=== PATIENT | male | born 1940 | race Two or more races ===

== ENCOUNTER 2018-03-31 06:20 | Day surgery (SDC) | payer MEDICARE ==
[2018-03-31] VITALS (10 sets, daily range): BP systolic 131–154; BP diastolic 69–82
[~2018-03-31] VITALS: Ht 157.5 cm; Wt 72.6 kg
[~2018-03-31 06:20] MED LIST: ASPIR 8181 MG ORAL; ATORVASTATIN CA40 MG ORAL; CLOPIDOGREL75 MG ORAL; METFORMIN HCL500 M4 ORAL; SULFAMETHOXAZO1 EAC1 ORAL
[2018-03-31] MEDS ORDERED: ceFAZolin sod 1 GM in NS 55 ML IVPB ONE (07:00)
--- NOTE | 2018-03-31 08:13 | Pre-Procedure Note/Attestation ---
Pre-Procedure Note/Attestation Complete Prior to Procedure Planned Procedure: not applicable Procedure Narrative: TURBT Indications for Procedure Pre-Operative Diagnosis: bladder tumor Attestation I attest that I discussed the nature of the procedure; its benefits; risks and complications; and alternatives (and the risks and benefits of such alternatives ), prior to the procedure, with the patient (or the patient's legal practice representative). I attest that, if there was a reasonable possibility of needing a blood transfusion, the patient (or the patient's legal practice representative) was given the [facility] standardized written summary, pursuant to the Manoj Maura Blood Safety Act ([place] Health and Safety Code # 1645, as amended). I attest that I re-evaluated the patient just prior to the surgery and that there has been no change in the patient's H&P, except as documented below: Mason Rowland MD Mar 31, 2018 08:13
[2018-03-31] MEDS ORDERED: LR 1000ml ONE (09:00)
[2018-03-31] MEDS ORDERED: Sterile Water For Irrig 2000ml IRRIG ONE (09:00)
[2018-03-31] MEDS ORDERED: NS Irrig 1000ml ONE (09:00)
[2018-03-31] MEDS ORDERED: Sterile Water Irrig 1000ml IRRIG ONE (09:00)
[2018-03-31] MEDS ORDERED: LR 1000ml 1,000 ML IVLG SCH (09:05)
--- NOTE | 2018-03-31 09:07 | Anethesia Preoperative Eval ---
Anesthesia Pre-op PMH/ROS General Date of Evaluation: Mar 31, 2018 Time of Evaluation: 09:44 Anesthesiologist: Yris ASA Score: ASA 3 Mallampati Score Class I : Soft palate, uvula, fauces, pillars visible Class II: Soft palate, uvula, fauces visible Class III: Soft palate, base of uvula visible Class IV: Only hard plate visible Mallampati Classification: Class II Surgeon: Janett Diagnosis: Bladder Tumor Surgical Procedure: TURBT Anesthesia History: none Family History: no anesthesia problems Allergies: Coded Allergies: No Known Allergies (Unverified , 03/30/18) Medications: see eMAR Patient NPO?: Yes Past Medical History Cardiovascular: Reports: HTN, other - HL Gastrointestinal/Genitourinary: Reports: other - Bladder Tumor Neurologic/Psychiatric: Reports: CVA Endocrine: Reports: DM Anesthesia Pre-op Phys. Exam Physician Exam Last Vital Signs Date Time Temp Pulse Resp B/P (MAP) Pulse Ox O2 Delivery O2 Flow Rate FiO2 03/31/18 06:52 97.5 54 20 132/72 96 Room Air 97.5 Constitutional: NAD Neurologic: CN 2-12 intact Cardiovascular: RRR Respiratory: CTA Gastrointestinal: S/NT/ND Airway Exam Mallampati Score: Class II MO: limited ROM: limited Teeth: missing Dentures: upper, lower Anesthesia Pre-op A/P Risk Assessment & Plan Assessment: ASA 3 Plan: GA, SED, GlideScope Go Status Change Before Surgery: No Pre-Antibiotics Dru Gram Ancef IV Given Within 1 Hr of Incision: Yes Time Given: 09:52 Demetrio Arndt MD Mar 31, 2018 09:07
[2018-03-31] MEDS ORDERED: Midazolam 2mg/2ml Inj IVP PRN (09:15)
[2018-03-31] MEDS ORDERED: Atropine Sulfate 0.4mg/ml inj IVP PRN (09:15)
[2018-03-31] MEDS ORDERED: Propofol 200mg/20ml IV ONE (09:15)
[2018-03-31] MEDS ORDERED: Hydromorphone 0.5mg/0.5ml inj IVP PRN (09:15)
[2018-03-31] MEDS ORDERED: HYDROcodone/Acetamin 7.5/325 tab ORAL PRN (09:15)
[2018-03-31] MEDS ORDERED: oxyCODONE HCL/Acetaminophen 5/325mg ORAL PRN (09:15)
[2018-03-31] MEDS ORDERED: Lidocaine 1% MPF 10mg/ml 5ml ONE (09:15)
[2018-03-31] MEDS ORDERED: Norco 5mg/325mg tab ORAL PRN ×2 (09:15→11:00)
[2018-03-31] MEDS ORDERED: Sodium Chloride 10ml vial INJ ONE (09:15)
[2018-03-31] MEDS ORDERED: Ketorolac 30mg Inj IV PRN ×2 (09:15)
[2018-03-31] MEDS ORDERED: Acetaminophen (Non formulary) 100 ML IV ONE (09:15)
[2018-03-31] MEDS ORDERED: fentaNYL 100 mcg/2 mL IV PRN (09:15)
[2018-03-31] MEDS ORDERED: DiphenhydrAMINE 50mg/ml Inj IVP PRN (09:15)
[2018-03-31] MEDS ORDERED: Meperidine 50mg/ml Inj(FOR RIGORS ONLY) IVP PRN (09:15)
[2018-03-31] MEDS ORDERED: LORazepam Inj 2mg/ml 1ml IV PRN (09:15)
[2018-03-31] MEDS ORDERED: Metoclopramide 10mg/2ml Inj IVP PRN (09:15)
[2018-03-31] MEDS ORDERED: fentaNYL 100 mcg/2 mL IV ONE (09:27)
[2018-03-31] MEDS ORDERED: Midazolam 2mg/2ml Inj ONE (09:27)
[2018-03-31] MEDS ORDERED: Iothalamate Meglumine 60% 30ML INJ ONE (09:45)
[2018-03-31] MEDS ORDERED: ePHEDrine 50mg/ml Inj ONE (10:01)
[2018-03-31] MEDS ORDERED: Glycopyrrolate 0.2mg/ml 1ml Vial ONE ×2 (10:08→10:49)
[2018-03-31] MEDS ORDERED: Ketorolac 30mg Inj ONE (10:49)
--- NOTE | 2018-03-31 10:52 | Brief Operative Note ---
Immediate Post Operative Note Operative Note Pre-op Diagnosis: bladder tumor Procedure: TURBT RPG Post-op Diagnosis: same Post-op Diagnosis: same as pre-op Surgeon: Mason Rowland Anesthesia: general Specimen: yes Complications: none Condition: stable Fluids: 500 Estimated Blood Loss: minimal Implant(s) used?: No Mason Rowland MD Mar 31, 2018 10:52
[2018-03-31] MEDS ORDERED: Tylenol #3 tab (300mg/30mg) ORAL PRN (11:00)
[2018-03-31] MEDS ORDERED: D5 1/2NS 1,000 ML IV SCH (11:00)
[2018-03-31] MEDS ORDERED: HYDROmorphone 1mg/ml Carpuject SUBQ PRN (11:00)
--- NOTE | 2018-03-31 11:08 | Immediate Post-Op Evaluation ---
Immediate Post-Op Evalulation Immediate Post-Op Evalulation Procedure: TURBT Date of Evaluation: Mar 31, 2018 Time of Evaluation: 11:17 IV Fluids: 900 LR Blood Products: 0 Estimated Blood Loss: 10 Urinary Output: 0 Blood Pressure Systolic: 143 Blood Pressure Diastolic: 80 Pulse Rate: 62 Respiratory Rate: 16 O2 Sat by Pulse Oximetry: 100 Temperature (Fahrenheit): 99.7 Pain Score (1-10): 2 Nausea: No Vomiting: No Complications 0 Patient Status: awake, reacts, patent, extubated, none Hydration Status: adequate Dru Gram Ancef IV Given Within 1 Hr of Incision: Yes Time Given: 09:52 Demetrio Arndt MD Mar 31, 2018 11:07
--- NOTE | 2018-03-31 16:49 | Diagnostic Imaging Report ---
INDICATION: Pain, intraoperative TECHNIQUE: Intraoperative imaging Fluoroscopy time: 49 seconds Total dose: 9.5 mGy Total number of images: 6 COMPARISON: None FINDINGS: Intraoperative images document opacification of the right ureter and renal collecting system, and a catheter within the left renal collecting system IMPRESSION: Intraoperative imaging, as described
--- NOTE | 2018-04-02 22:30 | Operative Note - Dictated ---
DATE OF OPERATION: 03/31/2018 NOTE: POOR AUDIO PREOPERATIVE DIAGNOSES: 1. Recurrent bladder cancer. 2. Urethral cancer. POSTOPERATIVE DIAGNOSES: 1. Recurrent bladder cancer. 2. Urethral cancer. OPERATIONS: 1. Transurethral resection of bladder tumor. 2. Transurethral resection of urethral tumor. 3. Retrograde pyelogram, bilateral. ASSISTANT CHIEF OF POLICE: Mason Rowland M.D. ANESTHESIA: General. FINDINGS: Tumor in the anterior dome of the bladder as well as in the posterior urethra. INDICATIONS FOR SURGERY: The patient had multiple recurrence of bladder tumor with BCG therapy and multiple TRBTs. He had recent cystoscopy, which showed some recurrence of the tumor . Treatment options were explained to him and his . He understands the nature of the procedure, signed a consent. DESCRIPTION OF SURGERY: He was brought to the operating room, placed in lithotomy position, prepped and draped in a standard fashion. Under general anesthesia, a cystoscope was introduced into the bladder and bilateral retrograde pyelograms were done. films were negative. Transurethral resection of the tumor was done in the bladder as well as the urethra. Also the tumor was fulgurated. Specimen was removed with the [employer] evacuator. No evidence of bleeding. Subsequently a 22-[place] Frances catheter was placed and left indwelling. Procedure was terminated. Sponge count, instrument count was correct. Mason Rowland M.D. DR: Amina JOB#: [id number] CC:
== END 2018-03-31 13:00 | disposition home or self-care (01) ==
LOC: SUR 06:20
DX: C67.9 Malignant neoplasm of bladder, unspecified (principal); C68.0 Malignant neoplasm of urethra; E11.9 Type 2 diabetes mellitus without complications; I11.9 Hypertensive heart disease without heart failure; I65.29 Occlusion and stenosis of unspecified carotid artery; I77.819 Aortic ectasia, unspecified site; E78.5 Hyperlipidemia, unspecified; Z86.73 Personal history of transient ischemic attack (TIA), and cerebral infarction without residual deficits; Z79.82 Long term (current) use of aspirin; Z79.84 Long term (current) use of oral hypoglycemic drugs
CPT/HCPCS: 52224; 74420; 76000; 82962; J0690; J1885; J2250; J2405; J2704; J3010; Q9961; 94003; 94150